=== PATIENT | male | born 1970 | race Caucasian/White ===

== ENCOUNTER 2020-05-06 01:31 | Emergency (ER) | payer OTHER ==
[2020-05-06] MEDS ORDERED: Ondansetron PF 4 MG/2 ML Vial ONE ×2 (01:49→05:25)
[2020-05-06] MEDS ORDERED: HYDROmorphone 0.5 MG/0.5 ML SYRINGE ONE (01:49)
[2020-05-06 02:09] LABS: #Basophils 0.1 thou/uL (0.0-0.2); #Eosinphils 0.2 thou/uL (0.0-0.7); #Lymphocytes 2.1 thou/uL (1.20-3.40); %Basophils 0.5 % (0.0-1.0); %Lymphocytes 12.7 % (21.0-51.0); %Monocytes 5.9 % (0.0-10.0); Hemoglobin 15.1 g/dL (14.0-18.0); Mean Corpuscular HGB CONC 35.4 g/dL (32.0-36.0); Mean Corpuscular Hemoglobin 30.1 pg (27.0-31.0); Mean Corpuscular Volume 85.2 fL (78.0-98.0); Mean Platelet Volume 7.8 fL (7.4-10.4); Platelet Count 284 thou/uL (130-400); Red Blood Cell (RBC) Count 5.02 mill/uL (4.70-6.10); White Blood Cell (WBC) Count 16.3 thou/uL (4.8-10.8)
[2020-05-06 02:30] LABS: ALT (SGPT) 76 U/L (8-55); AST (SGOT) 35 U/L (5-34); Albumin 4.2 g/dL (3.5-5.0); Alkaline Phosphatase 99 U/L (40-110); Anion Gap 16 mmol/L (10-20); BUN (Urea Nitrogen) 14 mg/dL (8.9-20.6); Bilirubin, Total 0.6 mg/dL (0.2-1.2); Calc. Creatinine Clearance 0 mL/min (70-130); Calcium 9.1 mg/dL (7.8-10.44); Carbon Dioxide 20 mmol/L (22-29); Chloride 107 mmol/L (98-107); Estimated GFR-MDRD Greater than 90; Glucose 215 mg/dL (70-105); Potassium 3.9 mmol/L (3.5-5.1); Protein, Total 7.2 g/dL (6.0-8.3); Sodium 139 mmol/L (136-145)
[2020-05-06] MEDS ORDERED: Morphine 4 MG/ML VIAL ONE (05:25)
--- NOTE | 2020-05-06 13:00 | RAD ---
RIGHT KNEE 4 VIEWS: HISTORY: The patient fell. FINDINGS: There is a transversely oriented fracture involving the proximal tibial shaft. The fracture also has more vertical or sagittal oriented components which extend into the intercondylar region and lateral tibial plateau. Findings would be better investigated with CT. IMPRESSION: Lateral tibial plateau fracture and proximal tibial shaft fracture. I would suggest CT for better as sessment. In addition, there is a nondisplaced more proximal fibular shaft fracture best appreciated on the lateral view. POS: OFF
--- NOTE | 2020-05-06 13:06 | RAD ---
PORTABLE CHEST: HISTORY: Preop. FINDINGS: Heart size and mediastinum within normal limits. The lungs are clear of infiltrates. IMPRESSION: No active intrathoracic disease. POS: OFF
== END 2020-05-06 09:00 | disposition short-term general hospital (02) ==
LOC: ERS 01:31
DX: S82.141A Displaced bicondylar fracture of right tibia, initial encounter for closed fracture (principal); S82.401A Unspecified fracture of shaft of right fibula, initial encounter for closed fracture; I25.2 Old myocardial infarction; I10 Essential (primary) hypertension; X50.9XXA Other and unspecified overexertion or strenuous movements or postures, initial encounter
CPT/HCPCS: 29505; 71045; 80053; 85025; 93005; 94760; 96361; 96374; 96375; 96376; J1170; J2270; J2405